=== PATIENT | female | born 1955 | race Caucasian/White ===

== ENCOUNTER 2020-01-04 07:35 | Outpatient (REF) | payer OTHER, MEDICARE, SELFPAY | END 2020-01-04 07:36 | disposition home or self-care (01) | LOC: HO.LAB 07:35 | PROVIDERS: PCP Internal Medicine; Visit Provider Internal Medicine | DX: Z20.828 Contact with and (suspected) exposure to other viral communicable diseases (principal) | CPT/HCPCS: C9803; U0003 ==

== ENCOUNTER 2020-03-13 12:43 | Outpatient (REF) | payer OTHER, MEDICARE, SELFPAY | END 2020-03-13 12:44 | disposition home or self-care (01) | LOC: HO.LAB 12:43 | PROVIDERS: PCP Internal Medicine; Visit Provider Internal Medicine | DX: Z20.822 Contact with and (suspected) exposure to COVID-19 (principal) | CPT/HCPCS: 36415; C9803; U0003 ==

== ENCOUNTER 2021-02-23 09:33 | Outpatient (REF) | payer OTHER, MEDICARE, SELFPAY ==
[2021-02-23 12:29] LABS: Binax Internal Control QC Valid; Binax Lot number: 9864; Binax Now Covid-19 Ag Positive (Negative)
== END 2021-02-23 09:34 | disposition home or self-care (01) ==
LOC: HO.LAB 09:33
PROVIDERS: Visit Provider Internal Medicine
DX: Z20.822 Contact with and (suspected) exposure to COVID-19 (principal)
CPT/HCPCS: 36415